=== PATIENT | female | born 1945 | race Caucasian/White ===

== ENCOUNTER → 2016-05-01 | Outpatient (CLI) | payer MEDICARE, OTHER | END | disposition home or self-care (01) | LOC: GMAL 10:39 | PROVIDERS: ATTEND Family Medicine | DX: E55.9 Vitamin D deficiency, unspecified (principal) ==

== ENCOUNTER → 2016-05-02 | Outpatient (CLI) | payer MEDICARE, OTHER ==
--- NOTE | 2016-05-02 15:53 | MRI ---
EXAM DESCRIPTION: Lumbar Spine w/o Contrast CLINICAL HISTORY: LOWER BACK PAIN COMPARISON: None Available. TECHNIQUE: MRI of the lumbar spine is performed according to our usual protocol with axial and sagittal multi sequence imaging. FINDINGS: Mild levoscoliosis noted. The AP alignment is unremarkable. There is no acute fracture or destructive osseous lesion. The conus medullaris terminates normally. L1-2: Anterior osteophytes. Mild facet degeneration. No spinal canal or neuroforaminal narrowing. L2-3: Moderate facet degeneration and ligamentum flavum thickening. 3 mm circumferential disc bulge. No spinal canal or neuroforaminal narrowing. L3-4: Circumferential disc osteophyte complex, moderate facet degeneration and ligamentum flavum thickening. The midline diameter spinal canal is narrowed to 8 mm. There is moderate right neural foraminal narrowing. The left neural foramen is mildly narrowed. L4-5: Circumferential disc osteophyte complex, moderate facet degeneration and ligamentum flavum thickening. The midline diameter spinal canal is narrowed to 6 mm. There is moderate bilateral neural foraminal narrowing. L5-S1: Mild right facet degeneration. No considerable posterior disc pathology. No spinal canal or neuroforaminal narrowing. IMPRESSION: 1. Today's exam demonstrates spinal canal narrowing at both L3-4 and L4-5. This is most pronounced at L4-5 in which there is near severe spinal canal narrowing as the AP diameter canal measures 6 mm. The narrowing is multifactorial. Electronically signed by: Loco Archer MD 05/02/2016 3:52 PM STOCK TRANSFER CLERK
== END | disposition home or self-care (01) ==
LOC: MRI 12:51
PROVIDERS: ATTEND Family Medicine
DX: M48.07 Spinal stenosis, lumbosacral region (principal)

== ENCOUNTER → 2017-05-12 | Outpatient (CLI) | payer MEDICARE, OTHER | LOC: GMAL 12:31 | PROVIDERS: ATTEND Family Medicine | DX: D51.3 Other dietary vitamin B12 deficiency anemia (principal); E55.9 Vitamin D deficiency, unspecified ==

== ENCOUNTER → 2017-06-02 | Outpatient (CLI) | payer MEDICARE, OTHER | END | disposition home or self-care (01) | LOC: GMAL 12:04 | PROVIDERS: ATTEND Family Medicine | DX: R53.82 Chronic fatigue, unspecified (principal); E34.9 Endocrine disorder, unspecified ==

== ENCOUNTER → 2017-09-29 | Outpatient (CLI) | payer MEDICARE, OTHER | LOC: GMAL 10:40 | PROVIDERS: ATTEND Family Medicine | DX: D51.3 Other dietary vitamin B12 deficiency anemia (principal); E55.9 Vitamin D deficiency, unspecified ==

== ENCOUNTER → 2018-03-16 | Outpatient (CLI) | payer MEDICARE, OTHER | LOC: GMAL 10:21 | PROVIDERS: ATTEND Family Medicine | DX: R79.89 Other specified abnormal findings of blood chemistry (principal) ==

== ENCOUNTER → 2018-09-21 | Outpatient (CLI) | payer MEDICARE, OTHER | LOC: GMAL 11:35 | PROVIDERS: ATTEND Family Medicine | DX: Z00.01 Encounter for general adult medical examination with abnormal findings (principal); R53.82 Chronic fatigue, unspecified ==

== ENCOUNTER → 2018-12-14 | Outpatient (CLI) | payer MEDICARE, OTHER | LOC: GMAL 15:20 | PROVIDERS: ATTEND Family Medicine | DX: D51.3 Other dietary vitamin B12 deficiency anemia (principal); E55.9 Vitamin D deficiency, unspecified ==

== ENCOUNTER 2018-12-30 05:41 | Day surgery (SDC) | payer MEDICARE, OTHER ==
[2018-12-30] MEDS ORDERED: PROPOFOL 200 MG/20 ML VIAL IV ONE (07:00)
[2018-12-30] MEDS ORDERED: LIDOCAINE 1% 10 ML VIAL INJ ONE (07:00)
[2018-12-30] MEDS ORDERED: LACTATED RINGERS 1,000 ML ONE (07:01)
[2018-12-30] MEDS ORDERED: LACTATED RINGERS 1,000 ML IVS ONE (07:50)
--- NOTE | 2018-12-30 08:56 | OP ---
DATE OF PROCEDURE: 12/30/18 PREOPERATIVE DIAGNOSIS: 1. Screening colonoscopy. POSTOPERATIVE DIAGNOSIS: 1. Screening colonoscopy. 2. Normal colon. PROCEDURE: 1. Colonoscopy to cecum. SURGEON: Sher Gomez MD ANESTHESIA: General. FINDINGS: There was a good prep. Some fixation in the sigmoid made it difficult to get through initially, but we did safely. The cecum was identified by the appendiceal orifice. Upon withdrawal, no polyps were seen. COMPLICATIONS: None. ESTIMATED BLOOD LOSS: None. CONDITION: Stable. PLAN: Discharge. INDICATION: As stated. PROCEDURE: No polyps were seen. The patient was awakened and taken to Recovery to be discharged. #[id number] MTDD
[2018-12-30 09:55] VITALS: BP 172/80; TEMP 96.9; O2SAT 98
== END 2018-12-30 09:55 | disposition home or self-care (01) ==
LOC: AMB 05:41
PROVIDERS: ATTEND Surgery
DX: Z12.11 Encounter for screening for malignant neoplasm of colon (principal); I10 Essential (primary) hypertension; Z86.010 Personal history of colon polyps; Z88.6 Allergy status to analgesic agent; Z88.5 Allergy status to narcotic agent; Z79.899 Other long term (current) drug therapy
CPT/HCPCS: 00812; G0105; J3490; J7120

== ENCOUNTER → 2019-09-15 | Outpatient (CLI) | payer MEDICARE, OTHER ==
--- NOTE | 2019-09-15 11:48 | CT ---
EXAM DESCRIPTION: Abdoment/Pelvis w/o Contrast CLINICAL HISTORY: 74 years Female, UNILATERAL INGUINAL HEMIA WITHOUT OBSTRUCTION OR GANGRENE TECHNIQUE: This exam was performed according to our departmental dose-optimization program, which includes automated exposure control, adjustment of the mA and/or kV according to patient size and/or use of iterative reconstruction technique. COMPARISON: None at time of initial interpretation. FINDINGS: Evaluation limited by lack of intravenous contrast. Bibasilar volume loss. No focal consolidation or suspicious pulmonary nodule. The contours of the liver, gallbladder, spleen, pancreas and adrenal glands are unremarkable Normal renal contours. No hydronephrosis. No urolithiasis. Unremarkable bladder. Scattered colonic diverticula without focal inflammatory change. No evidence of bowel obstruction. No findings to suggest appendicitis. Bilateral fat-containing inguinal hernias. No adenopathy. No focal fluid collection. No free air. Normal caliber abdominal aorta. Diffuse atherosclerotic disease. No acute or suspicious osseous abnormality. Scattered degenerative changes present. Right total hip arthroplasty. IMPRESSION: Bilateral fat-containing inguinal hernias. Electronically signed by: Larry Vaughan MD 09/15/2019 11:46 AM CDT
== END ==
LOC: CT 09:00
PROVIDERS: ATTEND Family Medicine
DX: K40.90 Unilateral inguinal hernia, without obstruction or gangrene, not specified as recurrent (principal)

== ENCOUNTER → 2019-11-21 | Outpatient (CLI) | payer MEDICARE, OTHER | LOC: GMAJ 16:43 | PROVIDERS: ATTEND Family Medicine | DX: I10 Essential (primary) hypertension (principal); E53.8 Deficiency of other specified B group vitamins; E55.9 Vitamin D deficiency, unspecified; E78.49 Other hyperlipidemia ==

== ENCOUNTER → 2020-02-09 | Outpatient (CLI) | payer MEDICARE, OTHER ==
--- NOTE | 2020-02-10 19:44 | MRI ---
EXAM DESCRIPTION: Thoracic Spine w/o Contrast: Magnetic Resonance Imaging. CLINICAL HISTORY: PAIN IN THORACIC SPINE COMPARISON: None. TECHNIQUE: Multiplanar, multiple standard sequences, non contrast MRI, thoracic spine. FINDINGS: T1-T2: Minimal desiccation of the disc bulge into the canal and both foramina. Narrowing but no stenosis. T2-T3: Trace anterolisthesis with no disc bulging. Bilateral facet arthrosis narrowing the foramina but no stenosis. T3-T4: Disc desiccation with posterior disc bulge and bulge into the bilateral foramina. Bilateral facet arthrosis more on the right with near stenosis of the foramina. T4-T5: Disc desiccation and disc space maintained. Minimal bulge into the canal and bilateral foramina but no stenosis. T5-T6: Disc desiccation. Anterior mild endplate reactive changes. Minimal disc bulge into the left foramen with narrowing. Canal and right foramen are patent. T6-T7: Disc desiccation and anterior disc space loss and mild narrowing. Posterior disc broad-based protrusion impressing on the ventral cord in the midline. Minimal narrowing of the left foramen by facet spur. No canal or foraminal stenosis. T7-T8: Moderate type I endplate reactive changes with disc space loss and endplate ridging. Posterior disc bulge abutting the cord. Mild canal narrowing. Bilateral foramina are patent. Minimal hypertrophy of both facet joints. T8-T9: Disc desiccation and anterior disc space loss and endplate ridging. Posterior disc bulge to the right of midline more than left. Minimal bulge into the right foramen. Canal and foraminal narrowing. Facet joints are negative. T9-T10: Disc desiccation and anterior disc space loss and anterior endplate ridging. Schmorl's node inferior T9 endplate. Posterior broad-based bulge with right paracentral protrusion impressing on the cord. Moderate canal narrowing. Bilateral foramina are patent. Facet joints are negative. T11-T12: Schmorl's node inferior endplate. Minimal posterior disc bulge, left of midline, abutting the cord. Bilateral foramina are patent and facet joints are negative. T12-L1 normal signal. Disc space are preserved. Canal and foramina are patent. Facet joints are unremarkable. Conus terminates at T12-L1. Cord with normal signal, no compression. Dextroscoliosis T5-T10. Paravertebral soft tissues are unremarkable. Normal marrow signal in the remaining vertebral bodies and the posterior elements. Vertebral bodies are not compressed at any level. IMPRESSION: 1. Multilevel disc desiccation and disc space loss, and endplate reactive change. 2. Disc bulge to the right at T9-T10 impressing on the cord. Disc bulge posterior to the right of midline at T8-T9. Posterior midline T3-T4 disc bulge and bilateral bulge into the foramina. Posterior midline T6-T7 disc protrusion impressing on the midline cord. Left foraminal narrowing. 3. Please refer to FINDINGS for discussion of results at nonspecific disc space levels. Electronically signed by: Danny Serrano MD 02/10/2020 7:[address] [facility]
== END ==
LOC: MRI 12:53
PROVIDERS: ATTEND Family Medicine
DX: M51.34 Other intervertebral disc degeneration, thoracic region (principal); M51.84 Other intervertebral disc disorders, thoracic region; M51.26 Other intervertebral disc displacement, lumbar region